=== PATIENT | female | born 1980 | race Asian ===

== ENCOUNTER 2017-12-01 10:18 | Emergency (ER) | payer OTHER ==
[~2017-12-01] VITALS: Ht 172.7 cm; Wt 77.1 kg
[2017-12-01 10:22] VITALS: BP 132/82
== END 2017-12-01 11:21 | disposition admitted as inpatient to this hospital (09) ==
LOC: ERH 10:18
DX: O92.29 Other disorders of breast associated with pregnancy and the puerperium (principal)